=== PATIENT | male | born 1980 | race Caucasian/White ===

== ENCOUNTER 2023-12-27 17:24 | Emergency (ER) | payer OTHER, SELFPAY ==
[2023-12-27 17:46] VITALS: BP 117/63
[2023-12-27 17:51] VITALS: BP 135/65
--- NOTE | 2023-12-27 18:04 | ED.GENMED ---
History of Present Illness
General
Chief Complaint: Musculo-Skeletal Complaint
Time Seen by Provider: 12/27/23 17:56
History of Present Illness
History of Present Illness:
43-year-old male presents the emergency department for evaluation of toe injury. He arrives across [facility] for medical clearance for incarceration. He sustained a left great toe injury 9 days ago, states he was evaluated in [facility]
[place] and had x-rays but was not told the results. He is concerned that he has been walking without immobilization.
Review of Systems
Review of Systems
Allergies reviewed?: Yes
All Other Systems: ROS reviewed and negative except as documented in HPI and ROS
Phy Exam
Physical Exam
Physical Exam:
GEN: Well appearing, NAD, WDWN
HEENT: Oral mucosa moist, no scleral icterus
Cardiac: Regular rate
Lung: No respiratory distress, no tachypnea
MSK: Diffuse swelling of the left great toe extending into the midfoot with mild ecchymosis, no erythema or warmth
Skin: Good color, no pallor or jaundice, no rashes
Neuro: AO x3, moves all extremities freely
Psych: Calm, cooperative
Course
Orders/Labs/Results
Orders:
Orders
12/27/23 18:04
CR Toe(s) Min 2 Vw Left Urgent
Comment:
Reason For Exam: toe injury
Vital Signs
Initial and Last Documented VS:
Initial Vital Signs
Temp Pulse Resp BP Pulse Ox
97.1 F 68 18 117/63 97
12/27/23 17:46 12/27/23 17:46 12/27/23 17:46 12/27/23 17:46 12/27/23 17:46
Last Documented Vital Signs
Temp Pulse Resp BP Pulse Ox
97.8 F 65 16 135/65 98
12/27/23 17:51 12/27/23 17:51 12/27/23 17:51 12/27/23 17:51 12/27/23 17:51
MDM/Problems Addressed
MDM/Problems Addressed:
X-ray confirmed a transverse fracture of the proximal phalanx of the left great toe. Will place in postop shoe, patient can be followed at [facility] for further medical care
*Critical Care Note
Total Time (30-74mins, 75-104mins- exclusive of procedures): Not Applicable
ED Attending Note
-
Portions of this chart may have been created with voice recognition software.� Occasional wrong word or��sound alike� substitutions may have occurred due to the inherent limitations of voice recognition software.
Discharge Plan
Departure
Patient Disposition: Home (Routine Discharge)
Date of Disposition: 12/27/23
Time of Disposition: 18:39
Patient with high blood pressure during this ER visit?: No
Discharge Problem:
Closed fracture of left great toe
Instructions: Toe Fracture ED
Referrals:
Jason Becerra DPM [Active] -
Stand Alone Forms: Return to Work
Activity Restrictions/Additional Instructions:
Post op shoe for 3 weeks
Follow up with Orthopedics in 2-3 weeks
Interventions
Interventions:
*Risk Screen - Suicide Last Done: 12/27/23 17:51
*General Assessment Last Done: 12/27/23 17:51
*Neglect/Abuse Screening Last Done: 12/27/23 17:51
ED- Fall Risk Assessment Last Done: 12/27/23 18:58
*ED COVID-19 Vaccine History Last Done: 12/27/23 17:51
*Nursing Disposition Last Done: 12/27/23 19:25
ED-Musculoskeletal Assessment Last Done: 12/27/23 18:58
Discharge Date and Time
Discharge Date/Time: 12/27/23 19:26
Print Language: [id number]
== END 2023-12-27 19:26 | disposition home or self-care (01) ==
LOC: EMR 17:24
PROVIDERS: EMERGENCY PHYSICIAN Student in an Organized Health Care Education/Training Program
DX: S92.402A Displaced unspecified fracture of left great toe, initial encounter for closed fracture (principal); S90.112A Contusion of left great toe without damage to nail, initial encounter; X58.XXXA Exposure to other specified factors, initial encounter; Z02.89 Encounter for other administrative examinations
CPT/HCPCS: 99283; 29515; 73660